=== PATIENT | female | born 1950 | race Caucasian/White ===

== ENCOUNTER 2021-03-15 10:16 | Inpatient (IN) ==
[2021-03-15] MEDS ORDERED: 0.9 % SODIUM CHLORIDE 1,000 ML IV ONE (10:29)
[2021-03-15] MEDS ORDERED: ALBUTEROL SULFATE 200 PUFF INHALER INH ONE (10:29)
--- NOTE | 2021-03-15 10:35 | Emergency Department Note ---
SOB HPI General Chief Complaint: Shortness of Breath/Dyspnea Stated Complaint: SOB, cough, Low O2 sats Time Seen by Provider: 03/15/21 10:24 Source: patient, RN notes reviewed and old records reviewed Mode of arrival: ambulatory Limitations: no limitations History of Present Illness HPI Narrative: Narrative: 70-year-old female with history of of lung cancer with clean margins on resection Long smoking history has not been immunized to Covid was exposed to Covid approximately 10 days ago complains of increasing shortness of breath and dyspnea. Positive weakness positive fevers positive cough nonproductive. Was hypoxic with a pulse ox of 64% on room air upon arrival. MD Complaint: shortness of breath Onset (ago): day(s) (10) Context: recent illness and other Severity: severe Consistency/Duration: constant Improves with: nothing Worsens with: exertion Known history of: COPD and other (Lung cancer with resection and clean) Associated symptoms: Reports fever, cough and palpitations; Denies chest pain, pain with inspiration, wheezing, sputum production, orthopnea, lower extremity pain, polyuria, polydipsia, parasthesias, carpopedal spasm, hemoptysis, diaphoresis, nausea/vomiting, syncope, abdominal pain, rash or sense of impending doom Treatment prior to arrival: none Related Data Home oxygen amount: none Home Medications Medication Instructions Recorded Confirmed insulin degludec 100 unit/mL (3 12 unit SUB-Q QHS ml 12/21/17 03/15/21 mL) subcutaneous pen (Tresiba FlexTouch U-100 insulin) omeprazole 20 mg tablet,delayed 20 mg PO QAM tab 12/21/17 03/15/21 release aripiprazole 5 mg tablet 5 mg PO QHS 03/15/21 03/15/21 cholestyramine-aspartame 4 gram 1 ea PO DAILY 03/15/21 03/15/21 oral powder (Cholestyramine Light) escitalopram oxalate 20 mg tablet 20 mg PO QDAY 03/15/21 03/15/21 gemfibrozil 600 mg tablet 600 mg PO QDAY 03/15/21 03/15/21 hydrocodone 7.5 mg-acetaminophen 1 - 2 tab PO Q4HP PRN 03/15/21 03/15/21 325 mg tablet ondansetron 4 mg disintegrating 4 mg PO Q4HP PRN 03/15/21 03/15/21 tablet oxycodone-acetaminophen 5 mg-325 1 - 2 tab PO Q4HP PRN 03/15/21 03/15/21 mg tablet pioglitazone 30 mg tablet 30 mg PO QDAY 03/15/21 03/15/21 Allergies Allergy/AdvReac Type Severity Reaction Status Date / Time Penicillins Allergy Intermediate Rash Verified 03/15/21 10:19 aspirin Allergy Unknown unknown Verified 03/15/21 10:19 bupropion Allergy Unknown Unknown Verified 03/15/21 10:19 simvastatin [From Zocor] Allergy Unknown Unknown Verified 03/15/21 10:19 adhesive tape AdvReac Intermediate Rash Verified 03/15/21 10:19 Review of Systems ROS ROS Narrative: Narrative: All systems ED: reviewed and negative except as stated. PFSH Narrative Patient History Narrative: Narrative: Medical/Surgical/Family History All Active Problems (Updated 03/15/21 @ 13:55 by Al Funez MD) Hypokalemia (Acute) Acute respiratory failure with hypoxia (Acute) Fracture of wrist (Acute) Foot sprain (Acute) Contusion of foot (Acute) Pneumonia due to COVID-19 virus (Acute) Breast pain (Chronic) Skin infection (Chronic) Gallstones (Chronic) Right upper quadrant pain (Chronic) Abdominal hernia (Chronic ~2015) Hx of cataract (Chronic ~2011) DMII (diabetes mellitus, type 2) (Chronic) Family history of abdominal aortic aneurysm (AAA) (Chronic) Hallux rigidus (Chronic) Equinus deformity of foot (Chronic) Neurodermatitis (Chronic) Obesity (Chronic) Nonalcoholic liver disease, chronic (Chronic) 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 mention of myelopathy (Chronic) Vitamin D deficiency (Chronic) Weight gain (Chronic) Postmenopausal (Chronic) Depression (Chronic) Hypertension (Chronic) Hyperlipidemia (Chronic) GERD (gastroesophageal reflux disease) (Chronic) Type 2 diabetes mellitus with hyperglycemia (Chronic) Osteopenia (Chronic) Strain of fascia of neck (Chronic) Contusion of left knee (Chronic) Contusion of left ankle (Chronic) Contusion of left hip (Chronic) Diarrhea (Chronic) Excessive sweating (Chronic) History of tobacco use (Chronic) Lung nodule (Chronic) Medical History (Updated 03/15/21 @ 13:55 by Al Funez MD) Abdominal hernia (~2015) Hx of hernia repair in 2016. Adenocarcinoma of lung, stage 1 Status post right upper lobectomy T1N0. Breast pain Contusion of left ankle Contusion of left hip Contusion of left knee Depression Diarrhea DMII (diabetes mellitus, type 2) Equinus deformity of foot Excessive sweating Family history of abdominal aortic aneurysm (AAA) Gallstones GERD (gastroesophageal reflux disease) Hallux rigidus History of tobacco use Hx of cataract (~2011) Hyperlipidemia Hypertension Lung nodule Neurodermatitis Nonalcoholic liver disease, chronic Obesity Osteopenia Postmenopausal Right upper quadrant pain Skin infection 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 mention of myelopathy Strain of fascia of neck Type 2 diabetes mellitus with hyperglycemia Vitamin D deficiency Weight gain Surgical History Breast mass, right (~1994) H/O gastric bypass (02/23/10) History of facelift (~2016) History of tonsillectomy and adenoidectomy Hx of cataract surgery (~2011) Hx of cholecystectomy (~2015) Rectal prolapse (~1985) Family History Family/Other Breast cancer CAD (coronary artery disease) DMII (diabetes mellitus, type 2) Myocardial infarction Mother Leukemia Esophageal cancer CHF (congestive heart failure) Social History Smoking Status: Former smoker Alcohol Intake Frequency: holiday/special occasion only Substance Use: does not use Exam Narrative Narrative: Narrative: General Limitations: no limitations General appearance: Present alert, in no apparent distress and thin Head Head: Present atraumatic, normocephalic and normal inspection Eye Eye: Present normal appearance, PERRL and EOMI ENT ENT: Present normal exam, normal oropharynx and mucous membranes dry Neck Neck: Present normal inspection and full ROM Chest Chest: Present normal inspection; Absent tenderness Respiratory Respiratory: Present normal lung sounds bilaterally, respiratory distress, wheezes, prolonged expiratory phase and decreased breath sounds; Absent rales/crackles or stridor Cardiovascular Cardiovascular: Present regular rate and normal rhythm; Absent systolic murmur Adbominal Abdominal: Present soft; Absent distention, tenderness, guarding or rebound Extremities Extremities: Present normal inspection and full ROM; Absent tenderness, pedal edema or pretibial edema Back Back: Present normal inspection; Absent CVA tenderness (R) or CVA tenderness (L) Neurological Neurological: Present alert and oriented X3 Psychiatric Psychiatric: Present normal affect and normal mood Skin Skin: Present warm (WNL); Absent rash Course Vital Signs Vital signs: Vital Signs Temperature 98.4 F 03/15/21 10:17 Pulse Rate 95 H 03/15/21 10:17 Respiratory Rate 22 03/15/21 10:17 Blood Pressure 133/65 03/15/21 10:17 Pulse Oximetry (%) 64 L 03/15/21 10:17 Temperature 97.8 F 03/15/21 14:31 Pulse Rate 86 03/15/21 16:02 Respiratory Rate 21 03/15/21 16:02 Blood Pressure 120/48 03/15/21 16:01 Pulse Oximetry (%) 98 03/15/21 16:02 MDM MDM Narrative Medical decision making narrative: Narrative: 17-year-old female unvaccinated Covid exposure positive Covid test positive Covid pneumonia. Patient is hypoxic and will require admission for supplemental oxygen. Differential Diagnosis Differential Diagnosis: Pneumonia, Covid pneumonia, COPD, PTX Medical Records Medical records reviewed: Yes I reviewed the patient's medical records. Lab Data Result diagrams: 03/15/21 10:30 03/15/21 10:30 Labs: Lab Results 03/15/21 03/15/21 03/15/21 Range/Units 10:30 10:30 10:30 WBC 3.3 L (4.5-11.0) K/mcL RBC 3.92 (3.59-5.38) M/mcL Hgb 11.8 (11.2-15.7) g/dL Hct 35.1 (34.1-44.9) % MCV 89.5 (80.0-100.0) fL MCH 30.1 (26.0-34.0) pg MCHC 33.6 (31.0-36.0) g/dL RDW 12.1 (11.5-14.5) % Plt Count 310 (140-440) K/mcL MPV 10.3 (7.4-10.4) fL Neut % (Auto) 80.2 H (38.0-78.0) % Lymph % (Auto) 12.3 L (15.5-49.0) % Arroyo % (Auto) 7.2 (1.0-12.0) % Eos % (Auto) 0 (0.0-7.0) % Baso % (Auto) 0.3 (0.0-2.0) % Lymph # (Auto) 0.41 L (1.50-4.80) K/mcL [place] # (Auto) 0.24 (0.10-0.90) K/mcL Eos # (Auto) 0 (0.00-0.70) K/mcL Baso # (Auto) 0.01 (0.00-0.30) K/mcL Absolute Neutrophils 2.68 (1.80-8.00) K/mcL PT (11.9-14.5) sec INR (0.9-1.1) Fibrinogen (200-400) mg/dL D-Dimer (0.27-0.50) ug/mL VBG Lactic Acid 1.3 (0.5-2.0) mmol/L Sodium 136 (133-145) mmol/L Potassium 3.1 L (3.3-5.1) mmol/L Chloride 96 (96-108) mmol/L Carbon Dioxide 21 L (22-30) mmol/L Anion Gap 19.0 H (8.0-16.0) BUN 11 (8-23) mg/dL Creatinine 0.6 (0.6-1.1) mg/dL GFR Calculation 92 Glucose 143 H (70-105) mg/dL Hemoglobin A1c (4.0-6.0) % Hgb Estim Average Glucose mg/dL Calcium 8.5 L (8.6-10.4) mg/dL Total Bilirubin 0.4 (0.1-1.0) mg/dL AST 158 H (<32) U/L ALT 62 H (<40) U/L Alkaline Phosphatase 106 (39-117) U/L Lactate Dehydrogenase (135-225) U/L Troponin T (<0.03) ng/mL C-Reactive Protein (0.03-0.80) mg/dL Total Protein 7.3 (5.9-8.4) gm/dL Albumin 3.7 (3.2-5.2) gm/dL Globulin 3.6 (2.2-3.7) gm/dL Albumin/Globulin Ratio 1.0 (1.0-2.3) Procalcitonin (<0.10) ng/mL 11/29/21 11/29/21 11/29/21 Range/Units 10:30 10:30 10:30 WBC (4.5-11.0) K/mcL RBC (3.59-5.38) M/mcL Hgb (11.2-15.7) g/dL Hct (34.1-44.9) % MCV (80.0-100.0) fL MCH (26.0-34.0) pg MCHC (31.0-36.0) g/dL RDW (11.5-14.5) % Plt Count (140-440) K/mcL MPV (7.4-10.4) fL Neut % (Auto) (38.0-78.0) % Lymph % (Auto) (15.5-49.0) % Arroyo % (Auto) (1.0-12.0) % Eos % (Auto) (0.0-7.0) % Baso % (Auto) (0.0-2.0) % Lymph # (Auto) (1.50-4.80) K/mcL [place] # (Auto) (0.10-0.90) K/mcL Eos # (Auto) (0.00-0.70) K/mcL Baso # (Auto) (0.00-0.30) K/mcL Absolute Neutrophils (1.80-8.00) K/mcL PT 13.8 (11.9-14.5) sec INR 1.0 (0.9-1.1) Fibrinogen 622 H (200-400) mg/dL D-Dimer 0.75 H (0.27-0.50) ug/mL VBG Lactic Acid (0.5-2.0) mmol/L Sodium (133-145) mmol/L Potassium (3.3-5.1) mmol/L Chloride (96-108) mmol/L Carbon Dioxide (22-30) mmol/L Anion Gap (8.0-16.0) BUN (8-23) mg/dL Creatinine (0.6-1.1) mg/dL GFR Calculation Glucose (70-105) mg/dL Hemoglobin A1c 5.9 (4.0-6.0) % Hgb Estim Average Glucose 123 mg/dL Calcium (8.6-10.4) mg/dL Total Bilirubin (0.1-1.0) mg/dL AST (<32) U/L ALT (<40) U/L Alkaline Phosphatase (39-117) U/L Lactate Dehydrogenase 526 H (135-225) U/L Troponin T < 0.01 (<0.03) ng/mL C-Reactive Protein 3.50 H (0.03-0.80) mg/dL Total Protein (5.9-8.4) gm/dL Albumin (3.2-5.2) gm/dL Globulin (2.2-3.7) gm/dL Albumin/Globulin Ratio (1.0-2.3) Procalcitonin (<0.10) ng/mL 03/15/21 Range/Units 10:30 WBC (4.5-11.0) K/mcL RBC (3.59-5.38) M/mcL Hgb (11.2-15.7) g/dL Hct (34.1-44.9) % MCV (80.0-100.0) fL MCH (26.0-34.0) pg MCHC (31.0-36.0) g/dL RDW (11.5-14.5) % Plt Count (140-440) K/mcL MPV (7.4-10.4) fL Neut % (Auto) (38.0-78.0) % Lymph % (Auto) (15.5-49.0) % Arroyo % (Auto) (1.0-12.0) % Eos % (Auto) (0.0-7.0) % Baso % (Auto) (0.0-2.0) % Lymph # (Auto) (1.50-4.80) K/mcL [place] # (Auto) (0.10-0.90) K/mcL Eos # (Auto) (0.00-0.70) K/mcL Baso # (Auto) (0.00-0.30) K/mcL Absolute Neutrophils (1.80-8.00) K/mcL PT (11.9-14.5) sec INR (0.9-1.1) Fibrinogen (200-400) mg/dL D-Dimer (0.27-0.50) ug/mL VBG Lactic Acid (0.5-2.0) mmol/L Sodium (133-145) mmol/L Potassium (3.3-5.1) mmol/L Chloride (96-108) mmol/L Carbon Dioxide (22-30) mmol/L Anion Gap (8.0-16.0) BUN (8-23) mg/dL Creatinine (0.6-1.1) mg/dL GFR Calculation Glucose (70-105) mg/dL Hemoglobin A1c (4.0-6.0) % Hgb Estim Average Glucose mg/dL Calcium (8.6-10.4) mg/dL Total Bilirubin (0.1-1.0) mg/dL AST (<32) U/L ALT (<40) U/L Alkaline Phosphatase (39-117) U/L Lactate Dehydrogenase (135-225) U/L Troponin T (<0.03) ng/mL C-Reactive Protein (0.03-0.80) mg/dL Total Protein (5.9-8.4) gm/dL Albumin (3.2-5.2) gm/dL Globulin (2.2-3.7) gm/dL Albumin/Globulin Ratio (1.0-2.3) Procalcitonin 0.10 H (<0.10) ng/mL ED POC Tests ED POC Tests: KUSHAL - SARS Antigen Positive Radiology Data Radiology results reviewed: Yes I reviewed the patient's radiology results. Radiology results narrative: Chest x-ray IMPRESSION: 1. Previous right upper lobectomy 2. Bibasilar interstitial abnormality. Findings are nonspecific. Differential diagnosis includes interstitial edema, fibrosis, or atypical pneumonia. Interpreted and Authenticated by: Tarun Fuller 03/15/21 EKG Data EKG #1: EKG attestation: Yes I reviewed and interpreted this EKG. Rate: normal Rhythm: NSR Voltage: decreased voltage throughout Interpretation: nonspecific ST-T wave changes Pulse Oximetry Data Pulse Ox %: 64 Interpretation: 64% on room air is hypoxic. Discharge Plan Patient/Caregiver Discharge Instructions Pt seen by [facility]NA[facility]/PA only: No Clinical Impression: Pneumonia due to COVID-19 virus Patient Disposition: Xfer As Inpt ([facility]) Condition: Fair Discharge Date/Time: 03/15/21 13:55
--- NOTE | 2021-03-15 11:01 | XRay Report ---
INDICATION: Hypoxia. History of lung cancer and right upper lobectomy TECHNIQUE: AP portable semiupright chest x-ray COMPARISON: Previous chest CT scans dated 08/31/2020, 02/25/2020, 09/10/2019, 12/24/2018 FINDINGS: Lungs:Previous right upper lobectomy. No detectable recurrent mass Interstitial abnormality at both lung bases. Findings are nonspecific. Interstitial edema, pulmonary fibrosis, or atypical pneumonia are possible. Correlation with physical examination and covid test recommended. Chest CT scan may be helpful. Heart, vascular:No significant cardiomegaly. Pulmonary vascularity is normal. No pulmonary edema or pulmonary congestion Mediastinum, heena:No mediastinal widening. No hilar mass Pleura:No pleural fluid. No pleural-based mass or calcification Skeletal:Negative. IMPRESSION: 1. Previous right upper lobectomy 2. Bibasilar interstitial abnormality. Findings are nonspecific. Differential diagnosis includes interstitial edema, fibrosis, or atypical pneumonia. Interpreted and Authenticated by: Tarun Fuller 03/15/21
[2021-03-15 11:39] LABS: Basophils # (Auto) 0.01 K/mcL (0.00-0.30); Basophils % (Auto) 0.3 % (0.0-2.0); Eosinophils # (Auto) 0 K/mcL (0.00-0.70); Eosinophils % (Auto) 0 % (0.0-7.0); Hematocrit 35.1 % (34.1-44.9); Hemoglobin 11.8 g/dL (11.2-15.7); Lymphocytes # (Auto) 0.41 K/mcL (1.50-4.80); Lymphocytes % (Auto) 12.3 % (15.5-49.0); Mean Cell Volume 89.5 fL (80.0-100.0); Mean Corpuscular HGB Conc 33.6 g/dL (31.0-36.0); Mean Platelet Volume 10.3 fL (7.4-10.4); Monocytes # (Auto) 0.24 K/mcL (0.10-0.90); Monocytes % (Auto) 7.2 % (1.0-12.0); Neutrophils % (Auto) 80.2 % (38.0-78.0); Platelet Count 310 K/mcL (140-440); RBC 3.92 M/mcL (3.59-5.38); Red Cell Distribution Width 12.1 % (11.5-14.5)
[2021-03-15 12:12] LABS: ALT/SGPT 62 U/L (<40); AST/SGOT 158 U/L (<32); Albumin 3.7 gm/dL (3.2-5.2); Alkaline Phosphatase 106 U/L (39-117); Bilirubin,Total 0.4 mg/dL (0.1-1.0); Blood Urea Nitrogen 11 mg/dL (8-23); Calcium 8.5 mg/dL (8.6-10.4); Carbon Dioxide 21 mmol/L (22-30); Chloride 96 mmol/L (96-108); Globulin 3.6 gm/dL (2.2-3.7); Glomerular Filtration Rate 92; Glucose 143 mg/dL (70-105)
--- NOTE | 2021-03-15 13:57 | Internal Med History&Physical ---
HPI History of Present Illness Patient information: Note initiated : 03/15/21 at 1:43 pm Service Date, if different from initiated Date: [] Patient: Ashlee Mcfarlane a 70 y/o F admitted on for SOB, cough, Low O2 sats. Chief Complaint: [CoVID pneumonia] History of present illness: Ms. Mcfarlane is a 70 year old F history of type 2 diabetes mellitus, stage I adenocarcinoma of the lung status post right upper lobe lobectomy, status post gastric bypass, presenting with 3 weeks history of general body weakness, shortness of breath, nonproductive cough, fever, shaking chills, and loss of the sense of smell and taste. She has no prior similar episode of prior Covid infections. Patient is an vaccinated against Covid pneumonia. Over the past 3 weeks, she is experiencing general body weakness, shortness of breath, nonproductive cough, fever, shaking chills, and loss of the sense of smell and taste. She lives with her who experienced the same subset of symptoms. She decided come to our hospital today for evaluation of her symptoms. Vital signs significant for oxygen desaturated to the 60s on room air upon arrival according to patient's, as well as tachypnea with heart rate in the 30s breaths per minute. Rest of the vital signs within normal limits. Jeny positive for Covid. WBC 3.3. Serum potassium level of 3.1. Chest x-ray showing previous right upper lobectomy, as well as bibasilar interstitial abnormalities sug gestive of interstitial edema, fibrosis, or Covid pneumonia/atypical pneumonia. Constitutional Constitutional: Present chills, fever(s) and weakness; Absent excessive sweating or fatigue EENT Eyes: Absent blurry vision, change in vision, loss of vision or other visual disturbances Ears: Absent decreased hearing or tinnitus Nose, mouth and throat: Absent abnormal hearing, dry mouth, headache(s), nasal congestion or sore throat Additional comments: loss of taste and smell Cardiovascular Cardiovascular: Absent chest pain, chest pain at rest, edema, irregular heart rhythm or palpatations Respiratory Respiratory: Present cough and dyspnea; Absent wheezing Gastrointestinal Gastrointestinal: Absent abdominal pain, constipation, diarrhea, nausea or vomiting Musculoskeletal Musculoskeletal: Absent back pain, deformity, limited range of motion, muscle cramps, muscle weakness or numbness Integumentary Integumentary: Absent lesions, rash or wounds Neurological Neurological: Absent focal weakness, headache(s) or numbness Psychiatric Psychiatric: Absent anxiety, depression or hallucinations PFSH PFSH All Active Problems (Updated 03/15/21 @ 13:55 by Al Funez MD) Hypokalemia (Acute) Acute respiratory failure with hypoxia (Acute) Fracture of wrist (Acute) Foot sprain (Acute) Contusion of foot (Acute) Pneumonia due to COVID-19 virus (Acute) Breast pain (Chronic) Skin infection (Chronic) Gallstones (Chronic) Right upper quadrant pain (Chronic) Abdominal hernia (Chronic ~2015) Hx of cataract (Chronic ~2011) DMII (diabetes mellitus, type 2) (Chronic) Family history of abdominal aortic aneurysm (AAA) (Chronic) Hallux rigidus (Chronic) Equinus deformity of foot (Chronic) Neurodermatitis (Chronic) Obesity (Chronic) Nonalcoholic liver disease, chronic (Chronic) 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 mention of myelopathy (Chronic) Vitamin D deficiency (Chronic) Weight gain (Chronic) Postmenopausal (Chronic) Depression (Chronic) Hypertension (Chronic) Hyperlipidemia (Chronic) GERD (gastroesophageal reflux disease) (Chronic) Type 2 diabetes mellitus with hyperglycemia (Chronic) Osteopenia (Chronic) Strain of fascia of neck (Chronic) Contusion of left knee (Chronic) Contusion of left ankle (Chronic) Contusion of left hip (Chronic) Diarrhea (Chronic) Excessive sweating (Chronic) History of tobacco use (Chronic) Lung nodule (Chronic) Medical History (Updated 03/15/21 @ 13:55 by Al Funez MD) Abdominal hernia (~2015) Hx of hernia repair in 2016. Adenocarcinoma of lung, stage 1 Status post right upper lobectomy T1N0. Breast pain Contusion of left ankle Contusion of left hip Contusion of left knee Depression Diarrhea DMII (diabetes mellitus, type 2) Equinus deformity of foot Excessive sweating Family history of abdominal aortic aneurysm (AAA) Gallstones GERD (gastroesophageal reflux disease) Hallux rigidus History of tobacco use Hx of cataract (~2011) Hyperlipidemia Hypertension Lung nodule Neurodermatitis Nonalcoholic liver disease, chronic Obesity Osteopenia Postmenopausal Right upper quadrant pain Skin infection 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 mention of myelopathy Strain of fascia of neck Type 2 diabetes mellitus with hyperglycemia Vitamin D deficiency Weight gain Surgical History Breast mass, right (~1994) H/O gastric bypass (02/23/10) History of facelift (~2016) History of tonsillectomy and adenoidectomy Hx of cataract surgery (~2011) Hx of cholecystectomy (~2015) Rectal prolapse (~1985) Family History Family/Other Breast cancer CAD (coronary artery disease) DMII (diabetes mellitus, type 2) Myocardial infarction Mother Leukemia Esophageal cancer CHF (congestive heart failure) Social History (Updated 06/19/18 @ 10:48 by Andres Gray MD) marital status: occupational status: retired smoking status start date: 04/17/1966 smoking status stop date: 04/17/08 alcohol intake frequency: holiday/special occasion only substance use type: does not use MEDS/ALLERGIES Home Medications and Allergies Home Medications Medication Instructions Recorded Confirmed Type insulin degludec 100 unit/mL (3 12 unit SUB-Q QHS ml 12/21/17 03/15/21 History mL) subcutaneous pen (Tresiba FlexTouch U-100 insulin) omeprazole 20 mg tablet,delayed 20 mg PO QAM tab 12/21/17 03/15/21 History release aripiprazole 5 mg tablet 5 mg PO QHS 03/15/21 03/15/21 History escitalopram oxalate 20 mg tablet 20 mg PO QDAY 03/15/21 03/15/21 History gemfibrozil 600 mg tablet 600 mg PO QDAY 03/15/21 03/15/21 History pioglitazone 30 mg tablet 30 mg PO QDAY 03/15/21 03/15/21 History Allergies Allergy/AdvReac Type Severity Reaction Status Date / Time Penicillins Allergy Intermediate Rash Verified 03/15/21 10:19 aspirin Allergy Unknown unknown Verified 03/15/21 10:19 bupropion Allergy Unknown Unknown Verified 03/15/21 10:19 simvastatin [From Zocor] Allergy Unknown Unknown Verified 03/15/21 10:19 adhesive tape AdvReac Intermediate Rash Verified 03/15/21 10:19 EXAM Constitutional Vitals: Temp Pulse Resp BP Pulse Ox 36.9 C 86 25 H 124/61 91 03/15/21 10:17 03/15/21 13:39 03/15/21 13:39 03/15/21 13:31 03/15/21 13:39 General appearance: cooperative and no acute distress Head Head exam: Present atraumatic and normocephalic Eye Eye exam: Present EOMI and PERRL ENT ENT exam: Present mucous membranes moist, normal exam and normal external ear exam Additional comments: Oxygen mask in place Neck Neck exam: Present normal inspection; Absent lymphadenopathy, tenderness or thyromegaly Respiratory Respiratory exam: Present decreased breath sounds and rhonchi; Absent accessory muscle use, CTAB, respiratory distress or wheezes Cardiovascular Cardiovascular exam: Present normal rate and rhythm; Absent JVD GI/Abdominal GI/Abdominal exam: Present normal bowel sounds and soft; Absent organomegaly or tenderness Extremities Exam Extremities exam: Present full ROM, normal capillary refill and normal inspection; Absent tenderness Neurological Exam Neurological exam: Present alert, CN II-XII intact and oriented X3; Absent motor sensory deficit Psychiatric Psychiatric exam: Present normal affect and normal mood; Absent anxious or depressed Skin Skin exam: Present dry and intact DATA Data Completed and Pending Labs: Labs from last 24 hours 03/15/21 03/15/21 03/15/21 10:30 10:30 10:30 WBC RBC Hgb Hct MCV MCH MCHC RDW Plt Count MPV Neut % (Auto) Lymph % (Auto) [place] % (Auto) Eos % (Auto) Baso % (Auto) Lymph # (Auto) [place] # (Auto) Eos # (Auto) Baso # (Auto) Absolute Neutrophils VBG Lactic Acid 1.3 Sodium 136 Potassium 3.1 L Chloride 96 Carbon Dioxide 21 L Anion Gap 19.0 H BUN 11 Creatinine 0.6 GFR Calculation 92 Glucose 143 H Calcium 8.5 L Total Bilirubin 0.4 AST 158 H ALT 62 H Alkaline Phosphatase 106 Troponin T < 0.01 Total Protein 7.3 Albumin 3.7 Globulin 3.6 Albumin/Globulin Ratio 1.0 03/15/21 10:30 WBC 3.3 L RBC 3.92 Hgb 11.8 Hct 35.1 MCV 89.5 MCH 30.1 MCHC 33.6 RDW 12.1 Plt Count 310 MPV 10.3 Neut % (Auto) 80.2 H Lymph % (Auto) 12.3 L [place] % (Auto) 7.2 Eos % (Auto) 0 Baso % (Auto) 0.3 Lymph # (Auto) 0.41 L [place] # (Auto) 0.24 Eos # (Auto) 0 Baso # (Auto) 0.01 Absolute Neutrophils 2.68 VBG Lactic Acid Sodium Potassium Chloride Carbon Dioxide Anion Gap BUN Creatinine GFR Calculation Glucose Calcium Total Bilirubin AST ALT Alkaline Phosphatase Troponin T Total Protein Albumin Globulin Albumin/Globulin Ratio A/P Assessment and plan (1) Pneumonia due to COVID-19 virus: Status: Acute (2) Acute respiratory failure with hypoxia: Status: Acute (3) DMII (diabetes mellitus, type 2): Status: Chronic Qualifiers: Diabetes mellitus complication status: without complication Diabetes mellitus terminal makeup operator insulin use: without skilled nursing use Qualified Code(s): E11.9 - Type 2 diabetes mellitus without complications (4) Adenocarcinoma of lung, stage 1: Status: Resolved Comment: Status post right upper lobectomy T1N0. Qualifiers: Laterality: right Qualified Code(s): C34.91 - Malignant neoplasm of unspecified part of right bronchus or lung (5) GERD (gastroesophageal reflux disease): Status: Chronic Qualifiers: Esophagitis presence: esophagitis presence not specified Qualified Code(s): K21.9 - Gastro-esophageal reflux disease without esophagitis (6) Hyperlipidemia: Status: Chronic (7) Depression: Status: Chronic (8) Hypokalemia: Status: Acute Narrative A/P Narrative: Assessment and Plans: 1. CoVID pneumonia with acute respiratory failure with hypoxia: Admit to inpatient PCU with telemetry Isolation: airborne and contact Lactic acid Inflammatory markers cbc w/ auto diff in the morning to trend WBC level Supplemental oxygen therapy titrate to achieve spo2>=92%, currently on 10L/min oxygen mask Remdesivir with daily LFTs monitoring Actemra Dexamethasone Lasix 20mg PO BID Lovenox Tylenol PRN fever Robitussin DM PRN cough DuoNeb NEB q4hr PRN wheezing Prone 16hr/day as tolerated CXR every a few days 2. T2DM: HgA1c Pioglitazone Insulin Lantus 12 unit SQ HS Low dose correctional scale AC HS Accu Chek AC HS Hypoglycemia protocol Diabetic diet 3. Depression: Lexapro 4. GERD: Continue oral PPI from home regimen 5. Hypokalemia: Potassium replacement therapy CMP in the morning to trend serum potassium level Also check serum Mg level and replace if needed 6. h/o lung cancer s/p right upper lobectomy: Continue to monitor 7. Mixed dyslipidemia: Continue Gemfibrozil GI ppx: Continue oral PPI from home regimen DVT ppx: Lovenox Code status: Full Prognosis: guarded Disposition: inpatient PCU with telemetry Time Spent With Patient Time: Total time spent is greater than 50% in coordination of care (as documented) at patient's floor/unit and/or counseling patient: Total time spent with greater than 50% in coordination of care (as documented) at patient's floor/unit and/or counseling patient:: Greater than 35 minutes
[2021-03-15] MEDS ORDERED: DEXTROSE 50% 50 ML VIAL IV PRN (14:05)
[2021-03-15] MEDS ORDERED: DEXTROSE 31 GM ORAL.SUSP PO PRN (14:05)
[2021-03-15] MEDS ORDERED: SENNOSIDES 1 TABLET PO PRN (14:05)
[2021-03-15] MEDS ORDERED: LACTULOSE 20 GM/30 ML ORAL.SOL PO PRN (14:05)
[2021-03-15] MEDS ORDERED: ONDANSETRON 4 MG/2 ML VIAL IV PRN (14:05)
[2021-03-15] MEDS ORDERED: guaiFENesin/DEXTROMETHORPHAN ORAL SOL PO PRN (14:05)
[2021-03-15] MEDS ORDERED: ACETAMINOPHEN 325 MG TABLET PO PRN (14:05)
[2021-03-15] MEDS ORDERED: IPRATROPIUM/ALBUTEROL 3 ML AMPUL.NEB NEB PRN (14:05)
[2021-03-15] MEDS ORDERED: REMDESIVIR 200 MG in 0.9 % SODIUM CHLORIDE 250 ML IV ONE (14:30)
[2021-03-15 14:38] LABS: WBC 3.3 K/mcL (4.5-11.0)
[2021-03-15] MEDS: 0.9 % SODIUM CHLORIDE 10 ML SYRINGE IV SCH ×2 (14:57→22:03)
[2021-03-15] MEDS ORDERED: TOCILIZUMAB 600 MG in 0.9 % SODIUM CHLORIDE 70 ML IV ONE (15:30)
[2021-03-15 15:41] LABS: Lactate Dehydrogenase 526 U/L (135-225)
[2021-03-15 15:45] LABS: Prothrombin Time 13.8 sec (11.9-14.5)
[2021-03-15 15:53] LABS: Estimated Average Glucose(eAG) 123 mg/dL; Hemoglobin A1C 5.9 % Hgb (4.0-6.0)
[2021-03-15] MEDS: FUROSEMIDE 20 MG TABLET PO SCH (17:19)
[2021-03-15] MEDS: POTASSIUM CHLORIDE 20 MEQ TABLET PO SCH (17:19)
[2021-03-15] MEDS: INSULIN LISPRO 1 UNIT/0.01 ML UNIT SQ SCH ×2 (17:27→22:04)
[2021-03-15] MEDS ORDERED: INSULIN DEGLUDEC SUB-Q SCH (21:00)
[2021-03-15] MEDS: HYDROCODONE/APAP 7.5/325MG TABLET PO PRN (21:09)
[2021-03-15] MEDS: INSULIN GLARGINE, HUMAN 1 UNIT/0.01 ML SQ SCH (22:02)
[2021-03-15] MEDS: ARIPIPRAZOLE 5 MG TABLET PO SCH (22:02)
[2021-03-15] MEDS: DOCUSATE SODIUM 100 MG CAPSULE PO SCH (22:04)
[2021-03-16] MEDS: HYDROCODONE/APAP 7.5/325MG TABLET PO PRN ×2 (02:44→21:14)
[2021-03-16 06:38] LABS: Basophils # (Auto) 0.01 K/mcL (0.00-0.30); Basophils % (Auto) 0.4 % (0.0-2.0); Eosinophils # (Auto) 0.01 K/mcL (0.00-0.70); Eosinophils % (Auto) 0.4 % (0.0-7.0); Hematocrit 32.8 % (34.1-44.9); Hemoglobin 10.7 g/dL (11.2-15.7); Lymphocytes # (Auto) 0.74 K/mcL (1.50-4.80); Lymphocytes % (Auto) 29.7 % (15.5-49.0); Mean Cell Volume 90.6 fL (80.0-100.0); Mean Corpuscular HGB Conc 32.6 g/dL (31.0-36.0); Mean Platelet Volume 9.8 fL (7.4-10.4); Monocytes # (Auto) 0.08 K/mcL (0.10-0.90); Monocytes % (Auto) 3.2 % (1.0-12.0); Neutrophils % (Auto) 66.3 % (38.0-78.0); Platelet Count 308 K/mcL (140-440); RBC 3.62 M/mcL (3.59-5.38); Red Cell Distribution Width 12.2 % (11.5-14.5); WBC 2.5 K/mcL (4.5-11.0)
[2021-03-16 07:04] LABS: ALT/SGPT 54 U/L (<40); AST/SGOT 144 U/L (<32); Albumin 3.2 gm/dL (3.2-5.2); Albumin/Globulin Ratio 1.1 (1.0-2.3); Alkaline Phosphatase 92 U/L (39-117); Bilirubin,Total 0.2 mg/dL (0.1-1.0); Blood Urea Nitrogen 9 mg/dL (8-23); Calcium 8.4 mg/dL (8.6-10.4); Carbon Dioxide 26 mmol/L (22-30); Chloride 102 mmol/L (96-108); Glomerular Filtration Rate 92; Glucose 91 mg/dL (70-105); Phosphorous 2.6 mg/dL (2.5-4.5)
[2021-03-16] MEDS: INSULIN LISPRO 1 UNIT/0.01 ML UNIT SQ SCH ×4 (07:14→21:12)
[2021-03-16] MEDS: 0.9 % SODIUM CHLORIDE 10 ML SYRINGE IV SCH ×3 (07:14→21:13)
[2021-03-16] MEDS: CHOLESTYRAMINE/ASPARTAME 4 GM POWD.PACK PO SCH (08:26)
[2021-03-16] MEDS: PIOGLITAZONE 15 MG TABLET PO SCH (08:26)
[2021-03-16] MEDS: OMEPRAZOLE 20 MG CAPSULE PO SCH (08:27)
[2021-03-16] MEDS: DOCUSATE SODIUM 100 MG CAPSULE PO SCH ×2 (08:27→21:12)
[2021-03-16] MEDS: GEMFIBROZIL 600 MG TABLET PO SCH (08:27)
[2021-03-16] MEDS: POTASSIUM CHLORIDE 20 MEQ TABLET PO SCH ×2 (08:27→16:55)
[2021-03-16] MEDS: FUROSEMIDE 20 MG TABLET PO SCH ×2 (08:27→16:23)
[2021-03-16] MEDS: ENOXAPARIN 40 MG/0.4 ML SYRINGE SQ SCH (08:27)
[2021-03-16] MEDS: DEXAMETHASONE 4 MG TABLET PO SCH (08:27)
[2021-03-16] MEDS: ESCITALOPRAM 20 MG TABLET PO SCH (08:27)
--- NOTE | 2021-03-16 09:08 | Internal Med Progress Note ---
SUBJECTIVE Subjective Patient information: Note initiated : 03/16/21 at 9:00 am Service Date, if different from initiated Date: [] Patient: Ashlee Mcfarlane a 70 y/o F admitted on 03/15/21 for SOB, cough, Low O2 sats. Chief Complaint: [CoVID pneumonia] Interval history: History of present illness: Ms. Mcfarlane is a 70 year old F history of type 2 diabetes mellitus, stage I adenocarcinoma of the lung status post right upper lobe lobectomy, status post gastric bypass, presenting with 3 weeks history of general body weakness, shortness of breath, nonproductive cough, fever, shaking chills, and loss of the sense of smell and taste. She has no prior similar episode of prior Covid infections. Patient is an vaccinated against Covid pneumonia. Over the past 3 weeks, she is experiencing general body weakness, shortness of breath, nonproduc tive cough, fever, shaking chills, and loss of the sense of smell and taste. She lives with her who experienced the same subset of symptoms. She decided come to our hospital today for evaluation of her symptoms. Vital signs significant for oxygen desaturated to the 60s on room air upon arrival according to patient's, as well as tachypnea with heart rate in the 30s breaths per minute. Rest of the vital signs within normal limits. Jeny positive for Covid. WBC 3.3. Serum potassium level of 3.1. Chest x-ray showing previous right upper lobectomy, as well as bibasilar interstitial abnormalities suggestive of interstitial edema, fibrosis, or Covid pneumonia/atypical pneumonia. 03/16: Afebrile overnight. Only prone for 20 min overnight. Been on BiPAP overnight, now on high flow oxygen 55L/min FiO2 80%. Received Actemra and Remdesivir yesterday. Also on Dexamethasone, Lasix, and Lovenox. Improving SOB. c/o nonproductive cough. Denies wheezing. Denies chest pain. Denies fever, chills, or sweating. Denies anxiety. Denies nausea, vomiting, diarrhea, or constipation. Constitutional Vitals: Vital Signs Temp Pulse Resp BP Pulse Ox 36.1 C 71 19 117/55 91 03/16/21 08:01 03/16/21 08:01 03/16/21 08:01 03/16/21 08:01 03/16/21 08:01 Period Temp Pulse Resp BP Sys/Renner Pulse Ox Last 24 Hr 36.1 C-36.9 C 55-95 11-33 94-135/39-82 64-99 Intake and Output 03/15/21 03/16/21 03/16/21 21:59 05:59 13:59 Intake Total 590 575 Output Total 250 1000 Balance 340 -425 Weight 77.366 kg Intake & Output: Intake & Output 03/15/21 03/16/21 03/16/21 21:59 05:59 13:59 Intake Total 590 575 Output Total 250 1000 Balance 340 -425 Weight 77.366 kg Intake: IV 350 Veklury 200 mg In Sodium 250 Chloride 0.9% 250 ml @ 500 mls/ hr IV ONCE ONE Rx#:[id number] Actemra 600 mg In Sodium 100 Chloride 0.9% 70 ml @ 100 mls/ hr IV ONCE ONE Rx#:[id number] Oral 240 575 Output: Urine Catheter Amount 1000 Void Amount 250 Other: Urine Appearance Clear Clear Uretheral (Cruz) Clear Urine Color Dark Yellow Bright Yellow Uretheral (Cruz) Dark Yellow Stool Size Smear Stool Color Green Stool Consistency Dry and Hard Formed # Bowel Movements 1 General appearance: cooperative and no acute distress Head Head exam: Present atraumatic and normal inspection Eye Eye exam: Present normal appearance ENT ENT exam: Present mucous membranes moist, normal exam and normal external ear exam Additional comments: High flow oxygen in place Neck Neck exam: Present normal inspection Respiratory Respiratory exam: Present decreased breath sounds and rhonchi Cardiovascular Cardiovascular exam: Present normal rate and rhythm GI/Abdominal GI/Abdominal exam: Present normal bowel sounds Additional comments: Cruz catheter in place Back Exam Back exam: Present normal inspection Neurological Exam Neurological exam: Present alert and oriented X3 Skin Skin exam: Present intact and warm OBJ DATA Labs CBC & Chem 7: 03/16/21 05:29 03/16/21 05:29 Labs: Abnormal Lab Results 03/16/21 03/16/21 03/15/21 05:29 05:29 10:30 WBC 2.5 L Hgb 10.7 L Hct 32.8 L Neut % (Auto) Lymph % (Auto) Lymph # (Auto) 0.74 L [place] # (Auto) 0.08 L Absolute Neutrophils 1.65 L Fibrinogen D-Dimer Potassium Carbon Dioxide Anion Gap Glucose Calcium 8.4 L Ferritin AST 144 H ALT 54 H Lactate Dehydrogenase C-Reactive Protein Procalcitonin 0.10 H 03/15/21 03/15/21 03/15/21 10:30 10:30 10:30 WBC Hgb Hct Neut % (Auto) Lymph % (Auto) Lymph # (Auto) [place] # (Auto) Absolute Neutrophils Fibrinogen 622 H D-Dimer 0.75 H Potassium 3.1 L Carbon Dioxide 21 L Anion Gap 19.0 H Glucose 143 H Calcium 8.5 L Ferritin 1104.0 H AST 158 H ALT 62 H Lactate Dehydrogenase 526 H C-Reactive Protein 3.50 H Procalcitonin 03/15/21 10:30 WBC 3.3 L Hgb Hct Neut % (Auto) 80.2 H Lymph % (Auto) 12.3 L Lymph # (Auto) 0.41 L [place] # (Auto) Absolute Neutrophils Fibrinogen D-Dimer Potassium Carbon Dioxide Anion Gap Glucose Calcium Ferritin AST ALT Lactate Dehydrogenase C-Reactive Protein Procalcitonin Meds: Medications Acetaminophen (Acetaminophen 325 Mg Tablet) 650 mg PO Q6HP PRN; Protocol PRN Reason: Per Pain Protocol/Fever > 101 Hydrocodone Bitart/Acetaminophen (Hydrocodone/Apap 7.5/325mg Tablet) 1 tab PO Q4HP PRN PRN Reason: Pain Last Admin: 03/16/21 02:44 Dose: 1 tab Documented by: Albuterol/Ipratropium (Ipratropium/Albuterol 3 Ml Ampul.Neb) 3 ml NEB Q4HRT PRN PRN Reason: Wheezing Cholestyramine Resin (Cholestyramine/Aspartame 4 Gm Powd.Pack) 1 gm PO DAILY [facility] Last Admin: 03/16/21 08:26 Dose: 1 gm Documented by: Dexamethasone (Dexamethasone 4 Mg Tablet) 6 mg PO DAILY [facility] Last Admin: 03/16/21 08:27 Dose: 6 mg Documented by: Dextrose (Dextrose 50% 50 Ml Vial) 0 ml IV UD PRN PRN Reason: Hypoglycemia Diagnostic Test (Pha) (Accu-Chek 1 Each Strip) 1 each FS ACHS [facility] Last Admin: 03/16/21 07:14 Dose: 1 each Documented by: Docusate Sodium (Docusate Sodium 100 Mg Capsule) 100 mg PO BID [facility] Last Admin: 03/16/21 08:27 Dose: 100 mg Documented by: Enoxaparin Sodium (Enoxaparin 40 Mg/0.4 Ml Syringe) 40 mg SQ DAILY [facility] Last Admin: 03/16/21 08:27 Dose: 40 mg Documented by: Escitalopram Oxalate (Escitalopram 20 Mg Tablet) 20 mg PO QDAY [facility] Last Admin: 03/16/21 08:27 Dose: 20 mg Documented by: Furosemide (Furosemide 20 Mg Tablet) 20 mg PO BIDD [facility] Last Admin: 03/16/21 08:27 Dose: 20 mg Documented by: Gemfibrozil (Gemfibrozil 600 Mg Tablet) 600 mg PO QDAY [facility] Last Admin: 03/16/21 08:27 Dose: 600 mg Documented by: Glucose (Dextrose 31 Gm Oral.Susp) 15 gm PO PRN PRN PRN Reason: Hypoglycemia Guaifenesin (Guaifenesin/Dextromethorphan Oral Samantha) 10 ml PO Q4HP PRN PRN Reason: Cough REMDESIVIR 100 mg/ Sodium (Chloride) 250 mls @ 500 mls/hr IV Q24H [facility] Stop: 03/19/21 13:29 Insulin Glargine (Insulin Glargine, Human 1 Unit/0.01 Ml) 12 unit SQ HS [facility] Last Admin: 03/15/21 22:02 Dose: 12 units Documented by: Insulin Human Lispro (Insulin Lispro 1 Unit/0.01 Ml Unit) 0 unit SQ ACHS [facility]; Protocol Last Admin: 03/16/21 07:14 Dose: Not Given Documented by: Lactulose (Lactulose 20 Gm/30 Ml Oral.Samantha) 10 gm PO DAILYP PRN PRN Reason: Constipation Omeprazole (Omeprazole 20 Mg Capsule) 20 mg PO ACB [facility] Last Admin: 03/16/21 08:27 Dose: 20 mg Documented by: Ondansetron HCl (Ondansetron 4 Mg/2 Ml Vial) 4 mg IV Q4HP PRN; Protocol PRN Reason: Nausea And Vomiting Pioglitazone HCl (Pioglitazone 15 Mg Tablet) 30 mg PO DAILY [facility] Last Admin: 03/16/21 08:26 Dose: 30 mg Documented by: Potassium Chloride (Potassium Chloride 20 Meq Tablet) 40 meq PO BIDCC [facility] Last Admin: 03/16/21 08:27 Dose: 40 meq Documented by: Senna (Sennosides 1 Tablet) 2 tab PO HSP PRN PRN Reason: Constipation Sodium Chloride (0.9 % Sodium Chloride 10 Ml Syringe) 10 ml IV Q8 [facility] Last Admin: 03/16/21 07:14 Dose: 10 ml Documented by: A/P Assessment and plan (1) Pneumonia due to COVID-19 virus: Status: Acute (2) Acute respiratory failure with hypoxia: Status: Acute (3) DMII (diabetes mellitus, type 2): Status: Chronic Qualifiers: Diabetes mellitus manager intermediate insulin use: without skilled nursing use Diabetes mellitus complication status: without complication Qualified Code(s): E11.9 - Type 2 diabetes mellitus without complications (4) Adenocarcinoma of lung, stage 1: Status: Resolved Comment: Status post right upper lobectomy T1N0. Qualifiers: Laterality: right Qualified Code(s): C34.91 - Malignant neoplasm of unspecified part of right bronchus or lung (5) GERD (gastroesophageal reflux disease): Status: Chronic Qualifiers: Esophagitis presence: esophagitis presence not specified Qualified Code(s): K21.9 - Gastro-esophageal reflux disease without esophagitis (6) Hyperlipidemia: Status: Chronic (7) Depression: Status: Chronic (8) Hypokalemia: Status: Acute Narrative A/P Narrative: Assessment and Plans: 1. CoVID pneumonia with acute respiratory failure with hypoxia: Stays in inpatient PCU with telemetry Isolation: airborne and contact Lactic acid Inflammatory markers cbc w/ auto diff in the morning to trend WBC level Supplemental oxygen therapy titrate to achieve spo2>=92%, currently on 10L/min oxygen mask Remdesivir with daily LFTs monitoring Actemra Dexamethasone Lasix 20mg PO BID Lovenox Tylenol PRN fever Robitussin DM PRN cough DuoNeb NEB q4hr PRN wheezing Prone 16hr/day as tolerated CXR every a few days 2. T2DM: HgA1c Pioglitazone Insulin Lantus 12 unit SQ HS Low dose correctional scale AC HS Accu Chek AC HS Hypoglycemia protocol Diabetic diet 3. Depression: Lexapro 4. GERD: Continue oral PPI from home regimen 5. Hypokalemia: Potassium replacement therapy CMP in the morning to trend serum potassium level Also check serum Mg level and replace if needed 6. h/o lung cancer s/p right upper lobectomy: Continue to monitor 7. Mixed dyslipidemia: Continue Gemfibrozil GI ppx: Continue oral PPI from home regimen DVT ppx: Lovenox Code status: Full Prognosis: guarded Disposition: inpatient PCU with telemetry Time Spent With Patient Time: Total time spent is greater than 50% in coordination of care (as documented) at patient's floor/unit and/or counseling patient: Total time spent with greater than 50% in coordination of care (as documented) at patient's floor/unit and/or counseling patient:: Greater than 35 minutes QUALITY VTE Deep Vein Thrombosis/Pulmonary Embolism Present on Admission: No
--- NOTE | 2021-03-16 13:24 | EKG ---
[facility] Test Date: 2021-03-15 Pat Name: Ashlee Mcfarlane Department: ED Room: Gender: Female Results Technician: sb : 1950 Requested By: Laz Weston Order Number: [id number] Reading MD: Tarun Damico M.D. Measurements Intervals [place] Rate: 85 P: 56 AR: 163 QRS: 15 QRSD: 105 T: 5 QT: 407 QTc: 484 Interpretive Statements Sinus rhythm Borderline low voltage, extremity leads Anterior ST and T wave abnormality, consider ischemia Electronically Signed On 03-16-2021 13:24:23 PST by Tarun Damico M.D. /store/[email or web address]/[id number]
[2021-03-16] MEDS: REMDESIVIR 100 MG in 0.9 % SODIUM CHLORIDE 250 ML IV SCH (13:28)
[2021-03-16] MEDS: ARIPIPRAZOLE 5 MG TABLET PO SCH (21:11)
[2021-03-16] MEDS: INSULIN GLARGINE, HUMAN 1 UNIT/0.01 ML SQ SCH (21:13)
[2021-03-17] MEDS: OMEPRAZOLE 20 MG CAPSULE PO SCH (06:22)
[2021-03-17] MEDS: 0.9 % SODIUM CHLORIDE 10 ML SYRINGE IV SCH ×3 (06:22→20:22)
[2021-03-17 07:10] LABS: Basophils # (Auto) 0.06 K/mcL (0.00-0.30); Basophils % (Auto) 1.3 % (0.0-2.0); Eosinophils # (Auto) 0.02 K/mcL (0.00-0.70); Eosinophils % (Auto) 0.4 % (0.0-7.0); Hemoglobin 12.4 g/dL (11.2-15.7); Lymphocytes # (Auto) 0.73 K/mcL (1.50-4.80); Lymphocytes % (Auto) 15.6 % (15.5-49.0); Mean Cell Volume 102.9 fL (80.0-100.0); Mean Corpuscular HGB Conc 29.5 g/dL (31.0-36.0); Mean Platelet Volume 10.3 fL (7.4-10.4); Monocytes # (Auto) 0.18 K/mcL (0.10-0.90); Monocytes % (Auto) 3.8 % (1.0-12.0); Neutrophils % (Auto) 78.9 % (38.0-78.0); Platelet Count 383 K/mcL (140-440); RBC 4.08 M/mcL (3.59-5.38); Red Cell Distribution Width 12.4 % (11.5-14.5); WBC 4.7 K/mcL (4.5-11.0)
[2021-03-17] MEDS: INSULIN LISPRO 1 UNIT/0.01 ML UNIT SQ SCH ×4 (07:11→20:20)
[2021-03-17 07:33] LABS: ALT/SGPT 50 U/L (<40); AST/SGOT 96 U/L (<32); Albumin/Globulin Ratio 0.9 (1.0-2.3); Alkaline Phosphatase 91 U/L (39-117); Bilirubin,Total 0.3 mg/dL (0.1-1.0); Blood Urea Nitrogen 11 mg/dL (8-23); Calcium 8.9 mg/dL (8.6-10.4); Carbon Dioxide 23 mmol/L (22-30); Chloride 105 mmol/L (96-108); Globulin 3.5 gm/dL (2.2-3.7); Glomerular Filtration Rate 92; Glucose 114 mg/dL (70-105)
[2021-03-17 07:34] LABS: Phosphorous 2.8 mg/dL (2.5-4.5)
[2021-03-17] MEDS: PIOGLITAZONE 15 MG TABLET PO SCH (08:12)
[2021-03-17] MEDS: POTASSIUM CHLORIDE 20 MEQ TABLET PO SCH (08:12)
[2021-03-17] MEDS: GEMFIBROZIL 600 MG TABLET PO SCH (08:12)
[2021-03-17] MEDS: FUROSEMIDE 20 MG TABLET PO SCH ×2 (08:12→16:12)
[2021-03-17] MEDS: ENOXAPARIN 40 MG/0.4 ML SYRINGE SQ SCH (08:12)
[2021-03-17] MEDS: DEXAMETHASONE 4 MG TABLET PO SCH (08:12)
[2021-03-17] MEDS: ESCITALOPRAM 20 MG TABLET PO SCH (08:12)
[2021-03-17] MEDS: DOCUSATE SODIUM 100 MG CAPSULE PO SCH ×2 (08:13→20:12)
[2021-03-17] MEDS: CHOLESTYRAMINE/ASPARTAME 4 GM POWD.PACK PO SCH (08:13)
--- NOTE | 2021-03-17 10:25 | Internal Med Progress Note ---
SUBJECTIVE Subjective Patient information: Note initiated : 03/17/21 at 10:22 am Service Date, if different from initiated Date: [] Patient: Ashlee Mcfarlane a 70 y/o F admitted on 03/15/21 for SOB, cough, Low O2 sats. Chief Complaint: [CoVID pneumonia] Interval history: History of present illness: Ms. Mcfarlane is a 70 year old F history of type 2 diabetes mellitus, stage I adenocarcinoma of the lung status post right upper lobe lobectomy, status post gastric bypass, presenting with 3 weeks history of general body weakness, shortness of breath, nonproductive cough, fever, shaking chills, and loss of the sense of smell and taste. She has no prior similar episode of prior Covid infections. Patient is an vaccinated against Covid pneumonia. Over the past 3 weeks, she is experiencing general body weakness, shortness of breath, nonprodu ctive cough, fever, shaking chills, and loss of the sense of smell and taste. She lives with her who experienced the same subset of symptoms. She decided come to our hospital today for evaluation of her symptoms. Vital signs significant for oxygen desaturated to the 60s on room air upon arrival according to patient's, as well as tachypnea with heart rate in the 30s breaths per minute. Rest of the vital signs within normal limits. Jeny positive for Covid. WBC 3.3. Serum potassium level of 3.1. Chest x-ray showing previous right upper lobectomy, as well as bibasilar interstitial abnormalities suggestive of interstitial edema, fibrosis, or Covid pneumonia/atypical pneumonia. 03/16: Afebrile overnight. Only prone for 20 min overnight. Been on BiPAP overnight, now on high flow oxygen 55L/min FiO2 80%. Received Actemra and Remdesivir yesterday. Also on Dexamethasone, Lasix, and Lovenox. Improving SOB. c/o nonproductive cough. Denies wheezing. Denies chest pain. Denies fever, chills, or sweating. Denies anxiety. Denies nausea, vomiting, diarrhea, or constipation. 03/17: Afebrile overnight. Tolerating partial proning. Was on BiPAP overnight, currently on high flow oxygen 55L/min FiO2 100%. Received Actemra on 03/15. Still on Dexamethasone and Remdesivir. Improving SOB. c/o nonproductive cough. Denies wheezing. Denies chest pain. Denies fever, chills, or sweating. Denies anxiety. Denies nausea, vomiting, diarrhea, or constipation. Constitutional Vitals: Vital Signs Temp Pulse Resp BP Pulse Ox 36.3 C 71 23 H 109/92 93 03/17/21 08:01 03/17/21 10:11 03/17/21 10:11 03/17/21 10:01 03/17/21 10:11 Period Temp Pulse Resp BP Sys/Renner Pulse Ox Last 24 Hr 36.3 C-36.8 C 56-132 10-34 70-125/33-94 61-98 Intake and Output 03/16/21 03/17/21 03/17/21 21:59 05:59 13:59 Intake Total 250 200 200 Output Total 650 250 Balance -400 -50 200 Weight 75.977 kg Intake & Output: Intake & Output 03/16/21 03/17/21 03/17/21 21:59 05:59 13:59 Intake Total 250 200 200 Output Total 650 250 Balance -400 -50 200 Weight 75.977 kg Intake: IV 250 Veklury 100 mg In Sodium 250 Chloride 0.9% 250 ml @ 500 mls/ hr IV Q24H [facility] Rx#:[id number] Oral 200 200 Output: Urine Catheter Amount 650 250 Other: Meal Breakfast Percent of Meal Consumed 50% Feeding Ability Independent Urine Appearance Clear Clear Uretheral (Cruz) Clear Clear Urine Color Dark Yellow Bright Yellow Uretheral (Cruz) Bright Yellow Bright Yellow Stool Size Small Stool Color Brown Stool Consistency Formed # Bowel Movements 1 Head Head exam: Present atraumatic and normal inspection Eye Eye exam: Present normal appearance ENT ENT exam: Present mucous membranes moist, normal exam and normal external ear exam Additional comments: High flow oxygen in place Neck Neck exam: Present normal inspection Respiratory Respiratory exam: Present normal respiratory exam and rhonchi Cardiovascular Cardiovascular exam: Present normal rate and rhythm GI/Abdominal GI/Abdominal exam: Present normal bowel sounds Extremities Exam Extremities exam: Present full ROM Back Exam Back exam: Present normal inspection Neurological Exam Neurological exam: Present alert and oriented X3 Skin Skin exam: Present intact and warm OBJ DATA Labs CBC & Chem 7: 03/17/21 06:02 03/17/21 06:01 Labs: Abnormal Lab Results 03/17/21 03/17/21 03/16/21 06:02 06:01 05:29 WBC Hgb Hct MCV 102.9 H MCHC 29.5 L Neut % (Auto) 78.9 H Lymph % (Auto) Lymph # (Auto) 0.73 L [place] # (Auto) Absolute Neutrophils Fibrinogen D-Dimer Potassium 5.3 H Carbon Dioxide Anion Gap Glucose 114 H Calcium 8.4 L Ferritin AST 96 H 144 H ALT 50 H 54 H Lactate Dehydrogenase C-Reactive Protein Albumin 3.0 L Albumin/Globulin Ratio 0.9 L Procalcitonin 03/16/21 03/15/21 03/15/21 05:29 10:30 10:30 WBC 2.5 L Hgb 10.7 L Hct 32.8 L MCV MCHC Neut % (Auto) Lymph % (Auto) Lymph # (Auto) 0.74 L [place] # (Auto) 0.08 L Absolute Neutrophils 1.65 L Fibrinogen D-Dimer Potassium Carbon Dioxide Anion Gap Glucose Calcium Ferritin 1104.0 H AST ALT Lactate Dehydrogenase 526 H C-Reactive Protein 3.50 H Albumin Albumin/Globulin Ratio Procalcitonin 0.10 H 03/15/21 03/15/21 03/15/21 10:30 10:30 10:30 WBC 3.3 L Hgb Hct MCV MCHC Neut % (Auto) 80.2 H Lymph % (Auto) 12.3 L Lymph # (Auto) 0.41 L [place] # (Auto) Absolute Neutrophils Fibrinogen 622 H D-Dimer 0.75 H Potassium 3.1 L Carbon Dioxide 21 L Anion Gap 19.0 H Glucose 143 H Calcium 8.5 L Ferritin AST 158 H ALT 62 H Lactate Dehydrogenase C-Reactive Protein Albumin Albumin/Globulin Ratio Procalcitonin Meds: Medications Acetaminophen (Acetaminophen 325 Mg Tablet) 650 mg PO Q6HP PRN; Protocol PRN Reason: Per Pain Protocol/Fever > 101 Hydrocodone Bitart/Acetaminophen (Hydrocodone/Apap 7.5/325mg Tablet) 1 tab PO Q4HP PRN PRN Reason: Pain Last Admin: 03/16/21 21:14 Dose: 1 tab Documented by: Albuterol/Ipratropium (Ipratropium/Albuterol 3 Ml Ampul.Neb) 3 ml NEB Q4HRT PRN PRN Reason: Wheezing Cholestyramine Resin (Cholestyramine/Aspartame 4 Gm Powd.Pack) 1 gm PO DAILY [facility] Last Admin: 03/17/21 08:13 Dose: Not Given Documented by: Dexamethasone (Dexamethasone 4 Mg Tablet) 6 mg PO DAILY [facility] Last Admin: 03/17/21 08:12 Dose: 6 mg Documented by: Dextrose (Dextrose 50% 50 Ml Vial) 0 ml IV UD PRN PRN Reason: Hypoglycemia Diagnostic Test (Pha) (Accu-Chek 1 Each Strip) 1 each FS ACHS [facility] Last Admin: 03/17/21 07:11 Dose: 1 each Documented by: Docusate Sodium (Docusate Sodium 100 Mg Capsule) 100 mg PO BID [facility] Last Admin: 03/17/21 08:13 Dose: Not Given Documented by: Enoxaparin Sodium (Enoxaparin 40 Mg/0.4 Ml Syringe) 40 mg SQ DAILY [facility] Last Admin: 03/17/21 08:12 Dose: 40 mg Documented by: Escitalopram Oxalate (Escitalopram 20 Mg Tablet) 20 mg PO QDAY [facility] Last Admin: 03/17/21 08:12 Dose: 20 mg Documented by: Furosemide (Furosemide 20 Mg Tablet) 20 mg PO BIDD [facility] Last Admin: 03/17/21 08:12 Dose: 20 mg Documented by: Gemfibrozil (Gemfibrozil 600 Mg Tablet) 600 mg PO QDAY [facility] Last Admin: 03/17/21 08:12 Dose: 600 mg Documented by: Glucose (Dextrose 31 Gm Oral.Susp) 15 gm PO PRN PRN PRN Reason: Hypoglycemia Guaifenesin (Guaifenesin/Dextromethorphan Oral Samantha) 10 ml PO Q4HP PRN PRN Reason: Cough REMDESIVIR 100 mg/ Sodium (Chloride) 250 mls @ 500 mls/hr IV Q24H [facility] Stop: 03/19/21 13:29 Last Infusion: 03/16/21 14:46 Dose: Infused Documented by: Insulin Glargine (Insulin Glargine, Human 1 Unit/0.01 Ml) 12 unit SQ [facility] Last Admin: 03/16/21 21:13 Dose: 12 units Documented by: Insulin Human Lispro (Insulin Lispro 1 Unit/0.01 Ml Unit) 0 unit SQ [facility]; Protocol Last Admin: 03/17/21 07:11 Dose: Not Given Documented by: Lactulose (Lactulose 20 Gm/30 Ml Oral.Samantha) 10 gm PO DAILYP PRN PRN Reason: Constipation Omeprazole (Omeprazole 20 Mg Capsule) 20 mg PO ACB [facility] Last Admin: 03/17/21 06:22 Dose: 20 mg Documented by: Ondansetron HCl (Ondansetron 4 Mg/2 Ml Vial) 4 mg IV Q4HP PRN; Protocol PRN Reason: Nausea And Vomiting Pioglitazone HCl (Pioglitazone 15 Mg Tablet) 30 mg PO DAILY [facility] Last Admin: 03/17/21 08:12 Dose: 30 mg Documented by: Senna (Sennosides 1 Tablet) 2 tab PO HSP PRN PRN Reason: Constipation Sodium Chloride (0.9 % Sodium Chloride 10 Ml Syringe) 10 ml IV Q8 [facility] Last Admin: 03/17/21 06:22 Dose: 10 ml Documented by: A/P Assessment and plan (1) Pneumonia due to COVID-19 virus: Status: Acute (2) Acute respiratory failure with hypoxia: Status: Acute (3) DMII (diabetes mellitus, type 2): Status: Chronic Qualifiers: Diabetes mellitus assisted insulin use: without assisted use Diabetes mellitus complication status: without complication Qualified Code(s): E11.9 - Type 2 diabetes mellitus without complications (4) Adenocarcinoma of lung, stage 1: Status: Resolved Comment: Status post right upper lobectomy T1N0. Qualifiers: Laterality: right Qualified Code(s): C34.91 - Malignant neoplasm of unspecified part of right bronchus or lung (5) GERD (gastroesophageal reflux disease): Status: Chronic Qualifiers: Esophagitis presence: esophagitis presence not specified Qualified Code(s): K21.9 - Gastro-esophageal reflux disease without esophagitis (6) Hyperlipidemia: Status: Chronic (7) Depression: Status: Chronic (8) Hyperkalemia: Status: Acute Narrative A/P Narrative: Assessment and Plans: 1. CoVID pneumonia with acute respiratory failure with hypoxia: Stays in inpatient PCU with telemetry Isolation: airborne and contact Lactic acid Inflammatory markers cbc w/ auto diff in the morning to trend WBC level Supplemental oxygen therapy titrate to achieve spo2>=92%, currently on 55L/min FiO2 100% Remdesivir with daily LFTs monitoring s/p Actemra 03/15 Dexamethasone Lasix 20mg PO BID Lovenox Tylenol PRN fever Robitussin DM PRN cough DuoNeb NEB q4hr PRN wheezing Prone 16hr/day as tolerated CXR every a few days 2. T2DM: HgA1c Pioglitazone Insulin Lantus 12 unit SQ HS Low dose correctional scale AC HS Accu Chek AC HS Hypoglycemia protocol Diabetic diet 3. Depression: Lexapro 4. GERD: Continue oral PPI from home regimen 5. Hyperkalemia: d/c potassium chloride Repeat CMP in the morning to trend serum potassium level 6. h/o lung cancer s/p right upper lobectomy: Continue to monitor 7. Mixed dyslipidemia: Continue Gemfibrozil GI ppx: Continue oral PPI from home regimen DVT ppx: Lovenox Code status: Full Prognosis: guarded Disposition: inpatient PCU with telemetry Time Spent With Patient Time: Total time spent is greater than 50% in coordination of care (as documented) at patient's floor/unit and/or counseling patient: Total time spent with greater than 50% in coordination of care (as documented) at patient's floor/unit and/or counseling patient:: Greater than 35 minutes QUALITY VTE Deep Vein Thrombosis/Pulmonary Embolism Present on Admission: No
[2021-03-17] MEDS: REMDESIVIR 100 MG in 0.9 % SODIUM CHLORIDE 250 ML IV SCH (12:59)
[2021-03-17] MEDS: ARIPIPRAZOLE 5 MG TABLET PO SCH (20:20)
[2021-03-17] MEDS: HYDROCODONE/APAP 7.5/325MG TABLET PO PRN (20:20)
[2021-03-17] MEDS: INSULIN GLARGINE, HUMAN 1 UNIT/0.01 ML SQ SCH (20:21)
[2021-03-18] MEDS: HYDROCODONE/APAP 7.5/325MG TABLET PO PRN (03:36)
[2021-03-18] MEDS: 0.9 % SODIUM CHLORIDE 10 ML SYRINGE IV SCH ×2 (05:18→12:42)
[2021-03-18] MEDS: OMEPRAZOLE 20 MG CAPSULE PO SCH (07:27)
[2021-03-18] MEDS: INSULIN LISPRO 1 UNIT/0.01 ML UNIT SQ SCH ×2 (07:54→12:28)
[2021-03-18] MEDS ORDERED: FUROSEMIDE 20 MG/2 ML VIAL IV SCH (08:00)
--- NOTE | 2021-03-18 08:24 | XRay Report ---
INDICATION: SOB TECHNIQUE: AP portable semiupright chest x-ray COMPARISON: Previous chest x-rays dated 03/15/2021, 05/29/2018 FINDINGS: Lungs:Previous right upper lobectomy. There are bilateral pulmonary parenchymal infiltrates with bibasilar predominance. These are predominantly interstitial. Infiltrates have increased significantly since 03/15/2021. Rapid interval progression is consistent with infection. ARDS is possible. Heart, vascular:No significant cardiomegaly. Pulmonary vascularity is normal. No pulmonary edema or pulmonary congestion Mediastinum, heena:No mediastinal widening. No hilar mass Pleura:No pleural fluid. No pleural-based mass or calcification Skeletal:Negative. IMPRESSION: 1. Significantly increased bilateral pulmonary parenchymal infiltrates with bibasilar predominance 2. Appearance is consistent with pneumonia Interpreted and Authenticated by: Tarun Fuller 03/18/21
[2021-03-18 08:30] LABS: Basophils # (Auto) 0.01 K/mcL (0.00-0.30); Basophils % (Auto) 0.3 % (0.0-2.0); Eosinophils # (Auto) 0.03 K/mcL (0.00-0.70); Eosinophils % (Auto) 0.9 % (0.0-7.0); Hematocrit 33.1 % (34.1-44.9); Hemoglobin 11.1 g/dL (11.2-15.7); Lymphocytes # (Auto) 0.63 K/mcL (1.50-4.80); Lymphocytes % (Auto) 18.8 % (15.5-49.0); Mean Cell Volume 91.2 fL (80.0-100.0); Mean Corpuscular HGB Conc 33.5 g/dL (31.0-36.0); Mean Platelet Volume 10.5 fL (7.4-10.4); Monocytes # (Auto) 0.12 K/mcL (0.10-0.90); Monocytes % (Auto) 3.6 % (1.0-12.0); Neutrophils % (Auto) 76.4 % (38.0-78.0); Platelet Count 354 K/mcL (140-440); RBC 3.63 M/mcL (3.59-5.38); WBC 3.4 K/mcL (4.5-11.0)
[2021-03-18 08:53] LABS: ALT/SGPT 41 U/L (<40); AST/SGOT 73 U/L (<32); Albumin 3.1 gm/dL (3.2-5.2); Alkaline Phosphatase 88 U/L (39-117); Bilirubin,Total 0.3 mg/dL (0.1-1.0); Blood Urea Nitrogen 12 mg/dL (8-23); Calcium 8.7 mg/dL (8.6-10.4); Carbon Dioxide 25 mmol/L (22-30); Chloride 101 mmol/L (96-108); Glomerular Filtration Rate 88; Glucose 95 mg/dL (70-105); Phosphorous 3.3 mg/dL (2.5-4.5)
--- NOTE | 2021-03-18 08:56 | Transfer Summary ---
Discharge Provider Provider Patient information: Note initiated : 03/18/21 at 8:52 am Service Date, if different from initiated Date: [] Patient: Ashlee Mcfarlane 70 y/o F admitted on 03/15/21 for SOB, cough, Low O2 sats. Chief Complaint: [] Date of admission: 03/15/21 13:55 Discharge date: 03/18/21 Primary care physician: Marcellus Muñiz Consults: 03/15/21 Consult to Physician [CONS] Stat Comment: Consulting Provider: Al Funez Reason For Exam: Physician to Consult Discharge Meds Discharge Medications Home Medications insulin degludec 100 unit/mL (3 mL) subcutaneous pen (Tresiba FlexTouch U-100 insulin) 12 unit SUB-Q QHS ml 12/21/17 [History Confirmed 03/15/21 Last Taken 03/23/18] omeprazole 20 mg tablet,delayed release 20 mg PO QAM tab 12/21/17 [History Confirmed 03/15/21 Last Taken Unknown] aripiprazole 5 mg tablet 5 mg PO QHS 03/15/21 [History Confirmed 03/15/21 Last Taken Unknown] cholestyramine-aspartame 4 gram oral powder (Cholestyramine Light) 1 ea PO DAILY 03/15/21 [History Confirmed 03/15/21 Last Taken Unknown] escitalopram oxalate 20 mg tablet 20 mg PO QDAY 03/15/21 [History Confirmed 03/15/21 Last Taken Unknown] gemfibrozil 600 mg tablet 600 mg PO QDAY 03/15/21 [History Confirmed 03/15/21 Last Taken Unknown] hydrocodone 7.5 mg-acetaminophen 325 mg tablet 1 - 2 tab PO Q4HP PRN 03/15/21 [History Confirmed 03/15/21 Last Taken Unknown] ondansetron 4 mg disintegrating tablet 4 mg PO Q4HP PRN 03/15/21 [History Confirmed 03/15/21 Last Taken Unknown] oxycodone-acetaminophen 5 mg-325 mg tablet 1 - 2 tab PO Q4HP PRN 03/15/21 [History Confirmed 03/15/21 Last Taken Unknown] pioglitazone 30 mg tablet 30 mg PO QDAY 03/15/21 [History Confirmed 03/15/21 Last Taken Unknown] COURSE Hospital Course Hospital course: Transfer Diagnosis * COVID-19 pneumonia, status post Actemra/on dexamethasone/remdesivir/diuresis. Clinically deteriorating. Complex history with right upper lobectomy. * Acute hypoxic respiratory failure-currently on 100 percent FiO2 NIV 28/11. ABG PaO2 50. Currently on prone positioning/BiPAP. Transfer to tertiary center for further management of Covid pneumonia. * Hypokalemia 3.5 on potassium replacement Brief hospital course Ms. Mcfarlane is a 70 year old F history of type 2 diabetes mellitus, stage I adenocarcinoma of the lung status post right upper lobe lobectomy, status post gastric bypass, presenting with 3 weeks history of general body weakness, shortness of breath, nonproductive cough, fever, shaking chills, and loss of the sense of smell and taste. She has no prior similar episode of prior Covid infections. Patient is an vaccinated against Covid pneumonia. Over the past 3 weeks, she is experiencing general body weakness, shortness of breath, nonproductive cough, fever, shaking chills, and loss of the sense of smell and taste. She lives with her who experienced the same subset of symptoms. She decided come to our hospital today for evaluation of her symptoms. Vital signs significant for oxygen desaturated to the 60s on room air upon arrival according to patient's, as well as tachypnea with heart rate in the 30s breaths per minute. Rest of the vital signs within normal limits. Jeny positive for Covid. WBC 3.3. Serum potassium level of 3.1. Chest x-ray showing previous right upper lobectomy, as well as bibasilar interstitial abnormalities suggestive of interstitial edema, fibrosis, or Covid pneumonia/atypical pneumonia. 03/16: Afebrile overnight. Only prone for 20 min overnight. Been on BiPAP overnight, now on high flow oxygen 55L/min FiO2 80%. Received Actemra and Remdesivir yesterday. Also on Dexamethasone, Lasix, and Lovenox. Improving SOB. c/o non productive cough. Denies wheezing. Denies chest pain. Denies fever, chills, or sweating. Denies anxiety. Denies nausea, vomiting, diarrhea, or constipation. 03/17: Afebrile overnight. Tolerating partial proning. Was on BiPAP overnight, currently on high flow oxygen 55L/min FiO2 100%. Received Actemra on 03/15. Still on Dexamethasone and Remdesivir. Improving SOB. c/o nonproductive cough. Denies wheezing. Denies chest pain. Denies fever, chills, or sweating. Denies anxiety. Denies nausea, vomiting, diarrhea, or constipation. 03/18 patient clinically worse. Now on 14/8 BiPAP 100% FiO2 PaO2 50. In light of prior lobectomy/reduced pulmonary reserve and worsening respiratory failure discussed options for transfer to tertiary center. Patient wants to be transferred and would like everything possible done in attempt to save life. She expressed desire for mechanical ventilation if indicated. Case discussed with transfer center at [facility] turfgrass management professor Dr. Keith. Patient accepted after discussion on phone. Subsequent discussed case with Dr. Chuckie Pichardo for intubation and initiation of mechanical ventilation. Dr. Suárez at this time is of the opinion that patient saturation is stable while proning on BiPAP. He would reevaluate prior to transfer if she would need to be intubated. During subsequent evaluation Dr. Lambert still feels patient will not need emergent intubation. EMS comfortable on transferring the patient to [facility] on noninvasive ventilation. Discharge diagnosis: COVID 19 PNA, Hypoxic resp failure Time Spent with Patient Time attestation: Critical care time spent on management of hypoxia spray failure/COVID-19 pneumonia/discussions with tertiary center and transfer coordination in excess of 120 minutes Time spent: Greater than 30 minutes EXAM Constitutional Vitals: Temp Pulse Resp BP Pulse Ox 97.1 F 74 24 H 112/61 91 03/18/21 08:00 03/18/21 08:01 03/18/21 08:01 03/18/21 08:00 03/18/21 08:01 Discharge Data Data Completed and Pending Labs on day of discharge: Labs from last 24 hours 03/18/21 03/18/21 05:26 05:26 WBC 3.4 L RBC 3.63 Hgb 11.1 L Hct 33.1 L MCV 91.2 MCH 30.6 MCHC 33.5 RDW 12.0 Plt Count 354 MPV 10.5 H Neut % (Auto) 76.4 Lymph % (Auto) 18.8 [place] % (Auto) 3.6 Eos % (Auto) 0.9 Baso % (Auto) 0.3 Lymph # (Auto) 0.63 L [place] # (Auto) 0.12 Eos # (Auto) 0.03 Baso # (Auto) 0.01 Absolute Neutrophils 2.57 Sodium Pending Potassium Pending Chloride Pending Carbon Dioxide Pending Anion Gap Pending BUN Pending Creatinine Pending GFR Calculation Pending Glucose Pending Calcium Pending Phosphorus Pending Magnesium Pending Total Bilirubin Pending AST Pending ALT Pending Alkaline Phosphatase Pending Total Protein Pending Albumin Pending Globulin Pending Albumin/Globulin Ratio Pending Preliminary micro results at discharge 03/15/21 11:07 Blood Culture - Preliminary Blood 03/15/21 10:53 Blood Culture - Preliminary Blood Discharge Plan Patient/Caregiver Discharge Instructions Activity: other Diet: NPO Activity Restrictions/Additional Instructions: Transfer to [facility], accepting physician Dr. Keith turfgrass management professor Transfer via air ambulance Prescriptions: No Action insulin degludec [Tresiba FlexTouch U-100] 100 unit/mL (3 mL) insulin pen 12 unit SUB-Q QHS 0RF omeprazole 20 mg tablet,delayed release (DR/EC) 20 mg PO QAM 0RF gemfibrozil 600 mg tablet 600 mg PO QDAY 0RF pioglitazone 30 mg tablet 30 mg PO QDAY 0RF escitalopram oxalate 20 mg tablet 20 mg PO QDAY 0RF aripiprazole 5 mg tablet 5 mg PO QHS 0RF oxycodone-acetaminophen 5-325 mg tablet 1 - 2 tab PO Q4HP PRN (Reason: Pain) 0RF hydrocodone-acetaminophen 7.5-325 mg tablet 1 - 2 tab PO Q4HP PRN (Reason: Pain) 0RF ondansetron 4 mg tablet,disintegrating 4 mg PO Q4HP PRN (Reason: Pain) 0RF Cholestyramine Light 4 gram powder 1 ea PO DAILY 0RF Follow Up Plan Follow up with: Marcellus Muñiz MD [Primary Care Provider] - Patient Disposition: [facility] Prognosis: Fair Rehab Potential: Serious I certify that the patient requires SNF services: No Overall status at discharge: patient is not back to baseline Discharge Orders: Discharge Order (Routine); Ordered 03/18/21 Ordered By: Lv GOLDSMITH VTE Deep Vein Thrombosis/Pulmonary Embolism Present on Admission: No
[2021-03-18] MEDS ORDERED: CHLORHEXIDINE GLUCONATE 1 ML ORAL.SOL SWABMOUTH SCH (09:00)
[2021-03-18] MEDS ORDERED: PROPOFOL 1,000 MG in PREMIX 1 BAG IV SCH (09:00)
[2021-03-18] MEDS ORDERED: HEPARIN/NS 500 ML IV SCH (09:00)
[2021-03-18] MEDS ORDERED: fentaNYL 2,500 MCG in 0.9 % SODIUM CHLORIDE 200 ML IV SCH (09:00)
[2021-03-18] MEDS ORDERED: DEXAMETHASONE 10 MG/ML VIAL IV SCH (09:00)
--- NOTE | 2021-03-18 09:16 | Emergency Department Note ---
ED Note Addendum Note Addendum: Dr. Weaver requested to come to the patient's bedside is anticipated a possible need for intubation. I arrived at the patient's bedside approximately [address] Ga and her ICU nurse are also at bedside. The patient is currently proned on BiPAP with oxygen saturations in the mid 90s. She is tachypneic but is able to speak in full sentences on the BiPAP. I discussed the possible need for intubation to facilitate safe transfer and the patient is agreeable. At this time, the patient is maintaining very good oxygen saturation and has reasonable work of breathing considering her diagnosis of Covid. I do not think she requires emergent intubation. Dr. Ga and her nurse agree. We will continue to closely monitor her and I will be available for intubation should her condition deteriorate or should the transportation crew be uncomfortable transporting her in her current condition.
[2021-03-18] MEDS ORDERED: LORazepam 2 MG/ML VIAL IV ONE (09:17)
[2021-03-18] MEDS: PIOGLITAZONE 15 MG TABLET PO SCH (09:38)
[2021-03-18] MEDS: DOCUSATE SODIUM 100 MG CAPSULE PO SCH (09:38)
[2021-03-18] MEDS: ENOXAPARIN 40 MG/0.4 ML SYRINGE SQ SCH (09:41)
--- NOTE | 2021-03-18 09:49 | Emergency Department Note ---
ED Note Addendum Note Addendum: Patient's nurse had noted periods of desaturation requested I returned to the bedside to reevaluate the patient. I did reevaluate the patient at 9:45 AM. She is resting comfortably with oxygen saturation 92 to 95% on BiPAP. She awakens to verbal stimuli and is able to speak in full sentences. We will continue to closely monitor her for any change in clinical status and need for intubation.
[2021-03-18] MEDS: DEXAMETHASONE 4 MG TABLET PO SCH (10:36)
[2021-03-18] MEDS: ESCITALOPRAM 20 MG TABLET PO SCH (11:37)
[2021-03-18] MEDS: GEMFIBROZIL 600 MG TABLET PO SCH (11:37)
[2021-03-18] MEDS: CHOLESTYRAMINE/ASPARTAME 4 GM POWD.PACK PO SCH (11:38)
[2021-03-18] MEDS ORDERED: POTASSIUM CHLORIDE 20 MEQ TABLET PO ONE (12:12)
[2021-03-18] MEDS: REMDESIVIR 100 MG in 0.9 % SODIUM CHLORIDE 250 ML IV SCH (12:41)
--- NOTE | 2021-03-18 12:58 | Emergency Department Note ---
ED Note Addendum Note Addendum: I reassessed the patient once again at 12:50 PM. She remains comfortable and conversing in full sentences without visibly increased work of breathing and oxygen saturation in the mid 90s while prone.
[2021-03-18] MEDS ORDERED: CALCIUM CARBONATE 500 MG TAB.CHEW CHEWED ONE (13:47)
== END 2021-03-18 13:57 | disposition short-term general hospital (02) | DRG 177 ==
LOC: ED 10:16 → ICU 13:55
PROVIDERS: ADMIT Internal Medicine; ATTEND Internal Medicine